=== PATIENT | female | born 1950 | race African-American/Black ===

== ENCOUNTER 2017-01-15 18:55 | Emergency (ER) | payer MEDICARE ==
--- NOTE | 2017-01-15 19:12 | PDOC ---
History of Present Illness - General History Source: Patient Exam Limitations: No Limitations - History of Present Illness Initial Comments: 01/15/17 19:38 The patient is a 66 year old female, with a significant past medical history of hypertension, ulcerative colitis, depression and asthma, who presents to the emergency department with discomfort to her bilateral lower extremities for approximately 2 weeks. The patient reports she has been experiencing a pulling sensation and tightness to her legs bilaterally. Patient reports associated leg swelling and darkening of her legs bilaterally, but denies any leg cramping , numbness, or paresthesias. Patient reports chronic shortness of breath, which she associates to her asthma, but she denies any chest pain, diaphoresis, or palpitations. She denies any fever, chills, headache, dizziness, or changes in vision. She denies any dysuria, hematuria, frequency, or urgency. She denies any abdominal pain, nausea, vomiting, diarrhea, or constipation. She denies any recent travel or sick contacts. PAST MEDICAL HISTORY: Hypertension, ulcerative colitis, depression and asthma PAST SURGICAL HISTORY: No significant history FAMILY HISTORY: No pertinent history SOCIAL HISTORY: Pt lives with family and is employed. Non smoker. No ETOH or recreational drug use. MEDICATIONS: reviewed ALLERGIES: As per nursing notes General: No fevers or chills, no weakness, no weight loss HEENT: No change in vision. No sore throat,. No ear pain CardioVascular: No chest pain. Respiratory: Yes shortness of breath. No cough, or wheezing. Gastrointestinal: no nausea, vomiting, diarrhea or constipation, No rectal bleeding Genitourinary: No dysuria, hematuria, or frequency Musculoskeletal: Yes pulling/tightness, swelling, and darkening of her legs bilaterally. No other joint or muscle pain or swelling Neurologic: No headache, vertigo, dizziness or loss of consciousness Psychiatric: No depression Skin: No rashes or easy bruising Endocrine: no increased thirst or abnormal weight change Allergic: no skin or latex allergy All other systems reviewed and normal General: Morbidly obese. Well-nourished well-developed individual, no acute distress HEENT: Throat: Normal, tonsils normal, no erythema or exudate Neck: Supple, no meningeal signs, no lymphadenopathy Eyes::Pupils equal reactive and round, extraocular motion intact Chest: Nontender to palpation Cardiac: S1-S2 normal, regular rate and rhythm, no murmurs rubs or gallops Respiratory: Lungs clear to auscultation bilateral Abdomen: Soft, nondistended, normal bowel sounds, nontender to palpation diffusely Extremities: 1+ nonpitting edema to the bilateral lower extremities. Warm, dry, no cyanosis, or clubbing. Vascular: DP/PT pulses 2+ and symmetric. Skin: No rashes Neuro: Alert and oriented x3, nonfocal exam, grossly intact, normal gait Psych: Normal mood and affect <Stephanie Weinstein - Last Filed: 01/15/17 19:44> - General History Source: Patient Exam Limitations: No Limitations - History of Present Illness Initial Comments: 01/15/17 20:15 A portion of this note was documented by scribe services under my direction. I have reviewed the details of the note, within reason, and agree with the documentation. The case summary and management plan written by me. Assessment and plan: This is a 58-year-old female who comes in complaining of 2 weeks now of intermittent swelling of her feet with some discomfort secondary to the swelling. Patient denies any chest pain or any other complaints. Patient tried to follow-up with her primary care doctor and has an appointment for 2 weeks from now. Patient had blood work that was unremarkable. Patient discharged and was told to make sure she keeps her appointment with her Dr. or try to get an appointment for sooner. Patient also was recommended to get some additional support stockings to wear at work as she is on her feet a lot. 01/15/17 21:08 <Evelina Basilio I - Last Filed: 01/15/17 21:09> - General Chief Complaint: Pain Stated Complaint: PULLING DISCOMFORT/PAIN TO BOTH FEET Time Seen by Provider: 01/15/17 19:00 Past History <Stephanie eWinstein - Last Filed: 01/15/17 19:44> - Past Medical History Anemia: Yes (?) GI Disorders: Yes (COLITIS) HTN: Yes Psychiatric Problems: Yes (DEPRESSION) - Immunization History Immunization Up to Date: No - Suicide/Smoking/Psychosocial Hx Smoking Status: No Smoking History: Former smoker Years of Tobacco Use: 10 Have you smoked in the past 12 months: No Number of Cigarettes Smoked Daily: 40 If you are a former smoker, when did you quit?: 2011 Hx Alcohol Use: No Drug/Substance Use Hx: No Substance Use Type: None Hx Substance Use Treatment: No <Evelina Basilio I - Last Filed: 01/15/17 21:09> - Past Medical History Allergies/Adverse Reactions: Allergies Allergy/AdvReac Type Severity Reaction Status Date / Time No Known Allergies Allergy Verified 01/15/17 18:57 Home Medications: Ambulatory Orders Mesalamine [Asacol -] 800 mg PO BID #0 tablet.ec 10/27/11 Famotidine [Pepcid] 40 mg PO DAILY 12/23/14 Lisinopril [Zestril] 40 mg PO DAILY 12/23/14 *Physical Exam - Vital Signs Last Vital Signs Temp Pulse Resp BP Pulse Ox 97.9 F 98 H 18 157/97 100 01/15/17 18:55 01/15/17 18:55 01/15/17 18:55 01/15/17 18:55 01/15/17 18:55 <Stephanie Weinstein - Last Filed: 01/15/17 19:44> ED Treatment Course - LABORATORY CBC & Chemistry Diagram: 01/15/17 19:45 <Evelina Basilio I - Last Filed: 01/15/17 21:09> *DC/Admit/Observation/Transfer - Attestations Scribe Attestion: 01/15/17 19:39 Documentation prepared by Stephanie Weinstein, acting as medical billing supervisor for Evelina Basilio MD. <Stephanie Weinstein - Last Filed: 01/15/17 19:44> - Discharge Dispostion Admit: No <Evelina Basilio I - Last Filed: 01/15/17 21:09> Diagnosis at time of Disposition: Pedal edema - Discharge Dispostion Disposition: HOME Condition at time of disposition: Stable - Patient Instructions Additional Instructions: Try to elevate your feet as much as possible. Purchase some support stockings and wear them while at work. Call your doctor and try to get an appointment for sooner if possible. Return to the emergency department immediately with ANY new, persistent or worsening symptoms. Continue any medications as previously prescribed by your physician. You should follow up with your primary doctor as soon as possible regarding today's emergency department visit. . Please make sure your doctor reviews the results of your emergency evaluation. Thank you for coming to the Emergency Department today for your care. It was a pleasure to see you today. Please note that your evaluation is INCOMPLETE until you follow-up with your doctor.
[2017-01-15 19:14] VITALS: BP 157/97; PULSE 98; TEMP 97.9; BMI 41.4
[2017-01-15 20:16] LABS: ALBUMIN 3.6 g/dl (3.5-5.0); ALK PHOS 85 U/L (32-92); ANION GAP 6 (8-16); BILIRUBIN,TOTAL 0.1 mg/dl (0.2-1.0); CALCIUM 8.8 mg/dl (8.4-10.2); CO2 31 mmol/L (22-28); CREATININE 0.9 mg/dl (0.6-1.3); GLUCOSE,RANDOM 112 mg/dl (74-106); SGOT/AST 21 U/L (10-42); SGPT/ALT 17 U/L (10-40); TOT PROT 7.8 g/dl (6.4-8.3)
--- NOTE | 2017-01-17 17:29 | EKG ---
Test Reason : Blood Pressure : / mmHG Vent. Rate : 087 BPM Atrial Rate : 087 BPM P-R Int : 140 ms QRS Dur : 070 ms QT Int : 370 ms P-R-T Axes : 070 042 071 degrees QTc Int : 445 ms NORMAL SINUS RHYTHM NONSPECIFIC T WAVE ABNORMALITY NO PREVIOUS ECGS AVAILABLE Confirmed by MD NICOLE, DENISE ([id number]) on 01/17/2017 5:29:03 PM Referred By: DR SAEZ Confirmed By:DENISE RIVERA MD
== END 2017-01-15 20:25 | disposition home or self-care (01) ==
LOC: FER 18:55
DX: R60.9 Edema, unspecified (principal); I10 Essential (primary) hypertension; K51.90 Ulcerative colitis, unspecified, without complications; F32.9 Major depressive disorder, single episode, unspecified; J45.909 Unspecified asthma, uncomplicated; Z87.891 Personal history of nicotine dependence
CPT/HCPCS: 36415; 80053; 93005; 99283-25